=== PATIENT | male | born 1960 | race Asian ===

== ENCOUNTER → 2020-12-21 17:28 | Outpatient (CLI) | payer BC, SELFPAY ==
--- NOTE | 2020-12-21 17:30 | DI.RAD.S_ITS ---
PROCEDURE: XR HAND LT MIN 3V INDICATIONS: left hand and wrist pain TECHNIQUE: 3 views of the hand(s) acquired. COMPARISON: [facility], CR, XR WRIST LT MIN 3V, 12/21/2020, 17:27. FINDINGS: Bones: No fractures or dislocations. Joint spaces appear preserved. No bony erosions. Carpal bones are normally aligned. No suspicious bony lesions. Soft tissues: No suspicious soft tissue calcifications. IMPRESSION: 1. No fracture or dislocation. Dictated by: Artemio Zhao M.D. on 12/21/2020 at 17:52 Approved by: Artemio Zhao M.D. on 12/21/2020 at 17:53
--- NOTE | 2020-12-21 17:30 | DI.RAD.S_ITS ---
PROCEDURE: XR WRIST LT MIN 3V INDICATIONS: left hand and wrist pain TECHNIQUE: 4 views of the wrist were acquired. COMPARISON: [facility], , XR HAND LT MIN 3V, 12/21/2020, 17:27. FINDINGS: Bones: No fractures or dislocations. No suspicious bony lesions. Scaphoid view: The scaphoid appears intact. Soft tissues: No suspicious soft tissue calcifications. IMPRESSION: 1. No fracture or dislocation. Dictated by: Artemio Zhao M.D. on 12/21/2020 at 17:53 Approved by: Artemio Zhao M.D. on 12/21/2020 at 17:53
== END ==
PROVIDERS: Referring Provider Nurse Practitioner; Visit Provider Nurse Practitioner
DX: M25.532 Pain in left wrist (principal); M79.642 Pain in left hand
CPT/HCPCS: 73110; 73130

== ENCOUNTER → 2021-06-22 08:48 | Outpatient (CLI) | payer BC, SELFPAY | PROVIDERS: Referring Provider Urology; Visit Provider Urology | DX: N41.1 Chronic prostatitis (principal) | CPT/HCPCS: 36415; 84153 ==